=== PATIENT | male | born 1950 | race Caucasian/White ===

== ENCOUNTER 2016-09-08 21:29 | Emergency (ER) | payer BC ==
[2016-09-08] MEDS ORDERED: predniSONE 20 MG TAB PO STA (21:54)
[2016-09-08] MEDS ORDERED: IBUPROFEN 400 MG TAB PO STA (21:54)
--- NOTE | 2016-09-08 22:02 | ED ---
Lower Extremity Injury HPI - General Chief Complaint: Extremity Injury, Lower Stated Complaint: Ankle Pain Time Seen by Provider: 09/08/16 21:45 Source: patient Mode of arrival: ambulatory Limitations: no limitations - History of Present Illness Initial Comments: This patient is a 66-year-old man who presents to be evaluated for left ankle pain. Patient states that he noted this late in the afternoon when he attempted to walk that there was some soreness in his ankle. He also noticed a small amount of swelling. The pain is present around the lateral and anterior aspect of the ankle. He denies having any injury that brought it on. He had been sitting and playing video game prior to developing it. The pain is aching , mild, unless he ambulates and then it becomes moderate. He has not noticed any other worsening or relieving factors. No associated symptoms. No fever or chill, palpitations, rash. MD Complaint: ankle injury Onset/Timin -: hour(s) Injury: Ankle: Left Place: home Severity: mild Improves With: rest Worsens With: weight bearing - Related Data Home Medications Medication Instructions Recorded Confirmed Ramipril [Ramipril] 1 tab PO DAILY 09/08/16 09/08/16 Previous Rx's Medication Instructions Recorded Hydrocodone/Acetaminophen [[place] 1 each PO Q6HR PRN #20 tab 09/08/16 5-325] Ibuprofen [Motrin] 800 mg PO Q8HR PRN #20 tab 09/08/16 predniSONE 60 mg PO DAILY #30 tab 09/08/16 Allergies Allergy/AdvReac Type Severity Reaction Status Date / Time No Known Allergies Allergy Verified 09/08/16 21:31 Review of Systems ROS Statement: Those systems with pertinent positive or pertinent negative responses have been documented in the HPI. ROS Other: All systems not noted in ROS Statement are negative. Constitutional: Denies: fever, chills, weakness Respiratory: Denies: cough, dyspnea Cardiovascular: Denies: chest pain, palpitations Genitourinary: Denies: dysuria Musculoskeletal: Reports: as per HPI, joint swelling, arthralgia Skin: Denies: rash Neurological: Denies: weakness, numbness, paresthesias Past Medical History Past Medical History: Hypertension History of Any Multi-Drug Resistant Organisms: None Reported Past Surgical History: Orthopedic Surgery Past Psychological History: No Psychological Hx Reported Smoking Status: Former smoker Past Alcohol Use History: Occasional Past Drug Use History: None Reported General Exam Limitations: no limitations Cardiovascular Exam: Present: other (Normal pedal pulses and capillary refill) Extremities exam: Present: normal inspection, tenderness, normal capillary refill, joint swelling, other (There is mild swelling at the lateral aspect of the left ankle. There is moderate pain with range of motion.). Absent: pedal edema, calf tenderness Neurological exam: Absent: motor sensory deficit Skin exam: Present: warm, dry, intact, normal color. Absent: rash Course Vital Signs 09/08/16 09/08/16 21:32 23:44 Temperature 98.7 F 98.0 F Pulse Rate 65 59 L Respiratory 20 18 Rate Blood Pressure 150/83 154/93 O2 Sat by Pulse 96 98 Oximetry Medical Decision Making - Lab Data Result diagrams: 09/08/16 22:00 09/08/16 22:00 Lab Results 09/08/16 09/08/16 09/08/16 Range/Units 22:00 22:00 22:00 WBC 11.4 H (3.8-10.6) k/uL RBC 4.64 (4.30-5.90) m/uL Hgb 13.4 (13.0-17.5) gm/dL Hct 41.8 (39.0-53.0) % MCV 90.1 (80.0-100.0) fL MCH 28.8 (25.0-35.0) pg MCHC 32.0 (31.0-37.0) g/dL RDW 13.7 (11.5-15.5) % Plt Count 223 (150-450) k/uL Neutrophils % (Manual) 39.0 % Lymphocytes % (Manual) 51.0 % Monocytes % (Manual) 7.0 % Eosinophils % (Manual) 3.0 % Neutrophils # (Manual) 4.4 (1.3-7.7) k/uL Lymphocytes # (Manual) 5.8 H (1.0-4.8) k/uL Monocytes # (Manual) 0.8 (0-1.0) k/uL Eosinophils # (Manual) 0.3 (0-0.7) k/uL Nucleated RBCs 0 (0-0) /100 WBC Manual Slide Review Performed RBC Morphology Normal D-Dimer 0.55 (<0.60) mg/L FEU Sodium 143 (137-145) mmol/L Potassium 4.0 (3.5-5.1) mmol/L Chloride 109 H (98-107) mmol/L Carbon Dioxide 25 (22-30) mmol/L Anion Gap 9 mmol/L BUN 22 H (9-20) mg/dL Creatinine 1.00 (0.66-1.25) mg/dL Est GFR (MDRD) Af Amer >60 (>60 ml/min/1.73 sqM) Est GFR (MDRD) Non-Af >60 (>60 ml/min/1.73 sqM) Glucose 98 (74-99) mg/dL Calcium 9.6 (8.4-10.2) mg/dL Disposition Clinical Impression: Arthralgia Disposition: HOME SELF-CARE Condition: Good Instructions: Arthralgia (ED) Prescriptions: Hydrocodone/Acetaminophen [[place] 5-325] 1 each PO Q6HR PRN #20 tab PRN Reason: Pain Ibuprofen [Motrin] 800 mg PO Q8HR PRN #20 tab PRN Reason: Pain predniSONE 60 mg PO DAILY #30 tab Referrals: Otis Reyna MD [Primary Care Provider] - 1-2 days
[2016-09-08 22:11] LABS: CH 30.4; CHCM 33.9; HCT 41.8 % (39.0-53.0); HDW 2.44; HGB 13.4 gm/dL (13.0-17.5); MCH 28.8 pg (25.0-35.0); MCV 90.1 fL (80.0-100.0); Mean Platelet Volume 6.9; RBC 4.64 m/uL (4.30-5.90); RDW 13.7 % (11.5-15.5); WBC 11.4 k/uL (3.8-10.6); WBC (Perox) 10.96
[2016-09-08 22:16] LABS: Add Differential Manual Differential
[2016-09-08 22:22] LABS: Anion Gap 9 mmol/L; Blood Urea Nitrogen 22 mg/dL (9-20); Calcium 9.6 mg/dL (8.4-10.2); Carbon Dioxide 25 mmol/L (22-30); Chloride 109 mmol/L (98-107); Glucose 98 mg/dL (74-99); Non-African American GFR(MDRD) >60 (>60 ml/min/1.73 sqM); Nucleated Red Blood Cells 0 /100 WBC (0-0); Sodium 143 mmol/L (137-145); Total Cells Counted 100
[2016-09-08 22:23] LABS: Manual Review Performed; RBC Morphology Normal
--- NOTE | 2016-09-08 22:30 | XR ---
EXAM: XR Left Ankle Complete, 3 or More Views CLINICAL HISTORY: Reason: Pain TECHNIQUE: Frontal, lateral and oblique views of the left ankle. COMPARISON: No relevant prior studies available. FINDINGS: Bones/joints: Punctate ossific focus is seen along the inferior margin of the distal tibia, adjacent to the lateral talar dome, only on the oblique view. The osseous structures are otherwise intact. Alignment is maintained. There are mild degenerative changes. There is a well- defined plantar calcaneal spur. Minor increased opacification changes noted at the Achilles insertion site. Mild smooth nonaggressive appearing cortical thickening of the distal fibular shaft laterally, may be due to prior injury. Soft tissues: Soft tissue swelling about the ankle including laterally and anteriorly. IMPRESSION: 1. Anterolateral soft tissue swelling. 2. Tiny ossific focus adjacent to the lateral talar dome and distal tibia as only seen on one view, may be a tiny chip or avulsion type injury of indeterminate chronicity or on a degenerative basis. 3. The osseous structures are otherwise intact.
[2016-09-08] MEDS ORDERED: HYDROmorphone 1 MG/ML 1 ML SYRINGE IVP STA (22:53)
[2016-09-08] MEDS ORDERED: traMADol 50 MG STARTER PACK 3 TAB BTL PO STA (23:30)
[2016-09-08 23:46] VITALS: BP 154/93; PULSE 59; RESP 18; TEMP 98
== END 2016-09-08 23:45 | disposition home or self-care (01) ==
LOC: EC 21:29
DX: M25.572 Pain in left ankle and joints of left foot (principal); I10 Essential (primary) hypertension; Z87.891 Personal history of nicotine dependence; Z79.899 Other long term (current) drug therapy
CPT/HCPCS: 36415; 85379; 80048; 85025; 73610; 99283; 96374; J1170; J7512

== ENCOUNTER 2022-05-20 07:17 | Emergency (ER) | payer BC, MEDICARE ==
[2022-05-20 07:28] VITALS: TEMP 97.6
[2022-05-20] MEDS ORDERED: SODIUM CHLORIDE 0.9% 1,000 ML IV STA (07:40)
[2022-05-20] MEDS ORDERED: KETOROLAC 15 MG/ML 1 ML VIAL IVP STA (07:40)
[2022-05-20] MEDS ORDERED: SODIUM CHLORIDE 0.9% 500 ML 500 ML IV STA (07:40)
[2022-05-20] MEDS ORDERED: ONDANSETRON 4 MG/2 ML VIAL IVP STA (07:40)
[2022-05-20 08:08] LABS: HCT 44.4 % (39.0-53.0); HGB 14.6 gm/dL (13.0-17.5); MCH 30.1 pg (25.0-35.0); MCHC 32.9 g/dL (31.0-37.0); MCV 91.4 fL (80.0-100.0); Mean Platelet Volume 8.1; Platelet Count 185 k/uL (150-450); RBC 4.86 m/uL (4.30-5.90); RDW 13.1 % (11.5-15.5); WBC 14.3 k/uL (3.8-10.6)
[2022-05-20 08:24] LABS: Albumin 4.2 g/dL (3.5-5.0); Calcium 8.9 mg/dL (8.4-10.2); Potassium 3.9 mmol/L (3.5-5.1); Total Bilirubin 0.3 mg/dL (0.2-1.3); Total Protein 6.7 g/dL (6.3-8.2)
[2022-05-20 08:28] LABS: Appearance,Urine Clear (Clear); Bilirubin,Urine Negative (Negative); Blood,Urine Large (Negative); Color,Urine Yellow; Glucose,Urine (UA) Negative (Negative); Ketones,Urine Negative (Negative); Leukocyte Esterase,Urine Negative (Negative); Mucus,Urine Occasional /hpf; Nitrite,Urine Negative (Negative); Protein,Urine Negative (Negative); RBC,Urine 68 /hpf (0-5); Specific Gravity,Urine 1.023 (1.001-1.035); Squamous Epithelial Cell,Urine <1 /hpf (0-4); Urobilinogen,Urine <2.0 mg/dL (<2.0); WBC,Urine <1 /hpf (0-5)
--- NOTE | 2022-05-20 08:32 | CT ---
EXAMINATION TYPE: CT abdomen pelvis wo con CT DLP: 958.1 mGycm, Automated exposure control for dose reduction was used. DATE OF EXAM: 05/20/2022 8:19 AM COMPARISON: None CLINICAL INDICATION:Male, 71 years old with history of right flank pain; Right sided flank pain TECHNIQUE: Axial CT of the abdomen and pelvis. Sagittal and coronal reformats were created on a [email or web address] workstation. Contrast used: None Oral contrast used: without Oral Contrast FINDINGS: LOWER CHEST: The heart is mildly enlarged for size. Coronary artery atherosclerosis. ABDOMEN LIVER: Unremarkable GALLBLADDER AND BILE DUCTS: Unremarkable. PANCREAS: Unremarkable. SPLEEN: Unremarkable. ADRENAL GLANDS: Unremarkable. KIDNEYS AND URETERS: Mild right hydronephrosis with poor visualization of the distal ureter secondary streak artifact from hip prostheses. There is a 5 mm density felt to be present at the distal right ureterovesicular junction. PELVIS BLADDER: Unremarkable REPRODUCTIVE: Unremarkable. ABDOMEN & PELVIS STOMACH AND BOWEL: No evidence of bowel obstruction. There is a large stool burden throughout the col on. Colonic diverticulosis. Scattered small bowel feces throughout the abdomen. PERITONEUM/RETROPERITONEUM: No evidence of pneumoperitoneum or free fluid. . 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 MUSCULOSKELETAL: No acute osseous abnormalities, bilateral hip prostheses with streak artifact limiti ng evaluation of the distal ureters and pelvis.. Multilevel disc degeneration changes to the spine. L eft hamstring origin normal injury suggested with calcifications. LYMPH NODES: No gross evidence for lymphadenopathy. SOFT TISSUE/ABDOMINAL WALL: Fat-containing umbilical hernia. Fat-containing left inguinal hernia. IMPRESSION: 1. Mild right hydronephrosis from a obstructing 5 mm calculus felt to be within the distal ureter at the ureterovesicular junction. 2. 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 3. Large stool burden with evidence of fecal stasis with small bowel feces throughout the small audrey l. 4. Colonic diverticulosis.
[2022-05-20] MEDS ORDERED: ACET/COD 300 MG/30 MG STARTER PACK 6 TAB BTL PO STA (08:50)
--- NOTE | 2022-05-20 08:51 | ED ---
Abdominal Pain HPI - General Chief Complaint: Abdominal Pain Stated Complaint: R. Side Pain Time Seen by Provider: 05/20/22 07:30 Source: patient, RN notes reviewed Mode of arrival: ambulatory Limitations: no limitations - History of Present Illness Initial Comments: 71-year-old male presents emergency Department chief complaint right flank pain. Patient states started around 5 AM this morning. Patient states that makes the pain feel better or worse at this time he's trying multiple position changes, anemia press on it with no real relief. Patient does admit to nausea and he states he attempted to have bowel movement dilated symptoms states that did not help. He denies any history kidney stones and prior abdominal surgeries no fever - Related Data Home Medications Medication Instructions Recorded Confirmed Ramipril 1 tab PO DAILY 09/08/16 09/08/16 Previous Rx's Medication Instructions Recorded Hydrocodone/Acetaminophen [[place] 1 each PO Q6HR PRN #20 tab 09/08/16 5-325] Ibuprofen [Motrin] 800 mg PO Q8HR PRN #20 tab 09/08/16 predniSONE 60 mg PO DAILY #30 tab 09/08/16 Ketorolac [Toradol] 10 mg PO Q8HR #15 tab 05/20/22 Ondansetron Odt [Zofran Odt] 4 mg PO Q8HR PRN #10 tab 05/20/22 Tamsulosin [Flomax] 0.4 mg PO DAILY #7 cap 05/20/22 Allergies Allergy/AdvReac Type Severity Reaction Status Date / Time No Known Allergies Allergy Verified 05/20/22 07:24 Review of Systems ROS Statement: Those systems with pertinent positive or pertinent negative responses have been documented in the HPI. ROS Other: All systems not noted in ROS Statement are negative. Past Medical History Past Medical History: Hypertension Additional Past Medical History / Comment(s): Lukemia History of Any Multi-Drug Resistant Organisms: None Reported Past Surgical History: Orthopedic Surgery Past Psychological History: No Psychological Hx Reported Smoking Status: Never smoker Past Alcohol Use History: Occasional Past Drug Use History: None Reported General Exam Limitations: no limitations General appearance: alert, in no apparent distress Head exam: Present: atraumatic, normocephalic, normal inspection Eye exam: Present: normal appearance, PERRL, EOMI. Absent: scleral icterus, conjunctival injection, periorbital swelling ENT exam: Present: normal exam, mucous membranes moist Respiratory exam: Present: normal lung sounds bilaterally. Absent: respiratory distress, wheezes, rales, rhonchi, stridor Cardiovascular Exam: Present: regular rate, normal rhythm, normal heart sounds. Absent: systolic murmur, diastolic murmur, rubs, gallop, clicks GI/Abdominal exam: Present: soft, tenderness (Minimal right), normal bowel sounds. Absent: distended, guarding, rebound, rigid Back exam: Present: CVA tenderness (R). Absent: CVA tenderness (L) Course Vital Signs 05/20/22 07:25 Temperature 97.6 F Pulse Rate 52 L Respiratory 16 Rate Blood Pressure 194/84 O2 Sat by Pulse 97 Oximetry Medical Decision Making - Medical Decision Making Was pt. sent in by a medical professional or institution (Dr. PA, T[employer] TER[employer] GAUGER, urgent care, hospital, or retirement...) When possible be specific @ -No Did you speak to anyone other than the patient for history (EMS, parent, family, police, friend...)? What history was obtained from this source @ -No Did you review nursing and triage notes (agree or disagree)? Why? @ -I reviewed and agree with nursing and triage notes Were old charts reviewed (outside hosp., previous admission, EMS record, old EKG, old radiological studies, urgent care reports/EKG's, retirement records)? Report findings @ -No old charts were reviewed Differential Diagnosis (chest pain, altered mental status, abdominal pain women, abdominal pain men, vaginal bleeding, weakness, fever, dyspnea, syncope, headache, dizziness, GI bleed, back pain, seizure, CVA, palpatations, mental health)? @ -Kidney stone, UTI, pyelonephritis, cholecystitis, cholelithiasis, this list is not all inclusive EKG interpreted by me (3pts min.). @ -None X-rays interpreted by me (1pt min.). @ -None done CT interpreted by me (1pt min.). @ -C2 having pelvis without contrast shows distal ureter calculi on the right 5 mm, moderate stool burden, fusiform aneurysm 3.5 cm U/S interpreted by me (1pt. min.). @ -None done What testing was considered but not performed or refused? (CT, X-rays, U/S, labs)? Why? @ -None What meds were considered but not given or refused? Why? @ -None Did you discuss the management of the patient with other professionals (professionals i.e. , PA, T[employer] GAUGER, lab, RT, psych nurse, psych social worker, continuity person, teacher, hospital chief financial officer, pillowcase turner)? Give summary @ -No Was smoking cessation discussed for >3mins.? @ -No Was critical care preformed (if so, how long)? @ -No Were there social determinants of health that impacted care today? How? (Homelessness, low income, unemployed, alcoholism, drug addiction, transportation, low edu. Level, literacy, decrease access to med. care, group home, rehab)? @ -No Was there de-escalation of care discussed even if they declined (Discuss DNR or withdrawal of care, Hospice)? DNR status @ -No What co-morbidities impacted this encounter? (DM, HTN, Smoking, COPD, CAD, Cancer, CVA, ARF, Chemo, Hep., AIDS, mental health diagnosis, sleep apnea, morbid obesity)? @ -None Was patient admitted / discharged? Hospital course, mention meds given and route, prescriptions, significant lab abnormalities, going to OR and other pertinent info. @ -Discharged - 8-year-old female presented for left flank pain. Patient has 5 mm UVJ stone. Patient's pain is improved. Patient was hydrated updated on CT findings of aneurysm, stool burden patient we discharged with pain medication, Flomax. Return parameters were discussed Undiagnosed new problem with uncertain prognosis? @ -No Drug Therapy requiring intensive monitoring for toxicity (Heparin, Nitro, Insulin, Cardizem)? @ -No Were any procedures done? @ -No Diagnosis/symptom? @ -Right ureter calculi Acute, or Chronic, or Acute on Chronic? @ -acute Uncomplicated (without systemic symptoms) or Complicated (systemic symptoms)? @ -Uncomplicated Side effects of treatment? @ -No Exacerbation, Progression, or Severe Exacerbation? @ -No Poses a threat to life or bodily function? How? (Chest pain, USA, PR, pneumonia, PE, COPD, DKA, ARF, appy, cholecystitis, CVA, Diverticulitis, Homicidal, Suicidal, threat to staff... and all critical care pts) @ -No - Lab Data Result diagrams: 05/20/22 07:56 05/20/22 07:56 Lab Results 05/20/22 05/20/22 05/20/22 Range/Units 07:56 07:56 07:56 WBC 14.3 H (3.8-10.6) k/uL RBC 4.86 (4.30-5.90) m/uL Hgb 14.6 (13.0-17.5) gm/dL Hct 44.4 (39.0-53.0) % MCV 91.4 (80.0-100.0) fL MCH 30.1 (25.0-35.0) pg MCHC 32.9 (31.0-37.0) g/dL RDW 13.1 (11.5-15.5) % Plt Count 185 (150-450) k/uL MPV 8.1 Sodium 144 (137-145) mmol/L Potassium 3.9 (3.5-5.1) mmol/L Chloride 110 H (98-107) mmol/L Carbon Dioxide 28 (22-30) mmol/L Anion Gap 6 mmol/L BUN 25 H (9-20) mg/dL Creatinine 1.06 (0.66-1.25) mg/dL Est GFR (CKD-EPI)AfAm 83 (>60 ml/min/1.73 sqM) Est GFR (CKD-EPI)NonAf 72 (>60 ml/min/1.73 sqM) Glucose 125 H (74-99) mg/dL Calcium 8.9 (8.4-10.2) mg/dL Total Bilirubin 0.3 (0.2-1.3) mg/dL AST 27 (17-59) U/L ALT 20 (4-49) U/L Alkaline Phosphatase 98 (38-126) U/L Total Protein 6.7 (6.3-8.2) g/dL Albumin 4.2 (3.5-5.0) g/dL Lipase 491 H (23-300) U/L Urine Color Yellow Urine Appearance Clear (Clear) Urine pH 5.0 (5.0-8.0) Ur Specific [place] 1.023 (1.001-1.035) Urine Protein Negative (Negative) Urine Glucose (UA) Negative (Negative) Urine Ketones Negative (Negative) Urine Blood Large H (Negative) Urine Nitrite Negative (Negative) Urine Bilirubin Negative (Negative) Urine Urobilinogen <2.0 (<2.0) mg/dL Ur Leukocyte Esterase Negative (Negative) Urine RBC 68 H (0-5) /hpf Urine WBC <1 (0-5) /hpf Ur Squamous Epith Cells <1 (0-4) /hpf Urine Mucus Occasional H (None) /hpf Disposition Clinical Impression: Ureteral calculus, right, Constipation Disposition: HOME SELF-CARE Condition: Stable Instructions (If sedation given, give patient instructions): Kidney Stones (ED) Additional Instructions: Please return to the Emergency Department if symptoms worsen or any other concerns. Prescriptions: Tamsulosin [Flomax] 0.4 mg PO DAILY #7 cap Ketorolac [Toradol] 10 mg PO Q8HR #15 tab Ondansetron Odt [Zofran Odt] 4 mg PO Q8HR PRN #10 tab PRN Reason: Nausea Is patient prescribed a controlled substance at d/c from ED?: No Referrals: Otis Reyna MD [Primary Care Provider] - 1-2 days Time of Disposition: 08:50
[2022-05-20 09:36] VITALS: BP 152/76; PULSE 64; RESP 18
[2022-05-20 10:22] LABS: Monocytes # (M) 0.29 k/uL (0-1.0); Neutrophils # (M) 2.72 k/uL (1.3-7.7); Neutrophils % (M) 19 %; Nucleated Red Blood Cells 0 /100 WBC (0-0); Total Cells Counted 100
== END 2022-05-20 09:05 | disposition home or self-care (01) ==
LOC: EC 07:17
DX: N20.1 Calculus of ureter (principal); K59.00 Constipation, unspecified; K57.30 Diverticulosis of large intestine without perforation or abscess without bleeding; I10 Essential (primary) hypertension; Z79.899 Other long term (current) drug therapy
CPT/HCPCS: 36415; 80053; 83690; 85025; 81001; 74176; 99284; 96374; 96375; 96361; J2405; J1885

== ENCOUNTER → 2022-09-11 | Outpatient (CLI) | payer MEDICARE ==
--- NOTE | 2022-09-11 16:22 | P.SLEEP ---
History of Present Illness H&P Date: 09/11/22 This is a 72-year-old male patient who is being seen for sleep apnea. The patient has been diagnosed having obstructive sleep apnea back in 1996. The patient has a maintain on CPAP therapy for many years and is coming in to update his CPAP unit. Currently he has a ResMed S9 machine which is set at a pressure of 6 cm of water. The patient is also using dreamware medium size nasal mask. He is doing well on treatment. As long as on treatment, he has no snoring and he wakes up refreshed and alert during the day. His current upper score is at 6. He goes to bed at around midnight and he wakes up between 8:52 AM in the morning. His weight has dropped by around 25 pounds since last year. No naps during the day. No sleep paralysis. No hallucinations. No cataplexy. No substance abuse. No alcoholism. He is known to have hypertension. No coronary artery disease and no stroke. No congestion heart failure. No issues with insomnia or nighttime heartburn or shortness of breath or chest pain. No restlessness lower extremities. No sleepwalking or sleep talking. No dreams. No nightmares. Review of Systems Constitutional: Reports as per HPI Eyes: denies as per HPI, denies blurred vision, denies bulging eye, denies decreased vision, denies diplopia, denies discharge, denies dry eye, denies irritation, denies itching, denies pain, denies photophobia, denies loss of peripheral vision, denies loss of vision, denies tunnel vision/blind spots Ears: deny: decreased hearing, ear discharge, earache, tinnitus Ears, nose, mouth and throat: Reports as per HPI Breasts: absent: as per HPI, gynecomastia Cardiovascular: Reports as per HPI Respiratory: Reports sleep apnea Gastrointestinal: Reports as per HPI Genitourinary: Reports as per HPI Musculoskeletal: Reports as per HPI Musculoskeletal: absent: ankle pain, ankle stiffness, ankle swelling, as per HPI, elbow pain, elbow stiffness, elbow swelling, foot pain, foot stiffness, foot swelling, hand pain, hand stiffness, hand swelling, hip pain, hip stiffness, hip swelling, knee pain, knee stiffness, knee swelling, shoulder pain, shoulder stiffness, shoulder swelling, wrist pain, wrist stiffness, wrist swelling Integumentary: Reports as per HPI Neurological: Reports as per HPI Psychiatric: Reports as per HPI Endocrine: Reports as per HPI Hematologic/Lymphatic: Reports as per HPI Allergic/Immunologic: Reports as per HPI Past Medical History Past Medical History: Hypertension Additional Past Medical History / Comment(s): Hypertension, obstructive sleep apnea History of Any Multi-Drug Resistant Organisms: None Reported Past Surgical History: Orthopedic Surgery Additional Past Surgical History / Comment(s): Left total knee replacement, right partial knee replacement, bilateral hip replacement, right shoulder repair, feet surgery bilateral, carpal tunnel release bilateral. UPPP, surgery for deviated nasal septum, tonsillectomy Past Psychological History: No Psychological Hx Reported Smoking Status: Never smoker Past Alcohol Use History: Occasional Past Drug Use History: None Reported Medications and Allergies Home Medications Medication Instructions Recorded Confirmed Type Hydrocodone/Acetaminophen [[place] 1 each PO Q6HR PRN #20 tab 09/08/16 Rx 5-325] Ibuprofen [Motrin] 800 mg PO Q8HR PRN #20 tab 09/08/16 Rx Ramipril 1 tab PO DAILY 09/08/16 09/08/16 History predniSONE 60 mg PO DAILY #30 tab 09/08/16 Rx Ketorolac [Toradol] 10 mg PO Q8HR #15 tab 05/20/22 Rx Ondansetron Odt [Zofran Odt] 4 mg PO Q8HR PRN #10 tab 05/20/22 Rx Tamsulosin [Flomax] 0.4 mg PO DAILY #7 cap 05/20/22 Rx Allergies Allergy/AdvReac Type Severity Reaction Status Date / Time No Known Allergies Allergy Verified 05/20/22 07:24 Physical Exam BP is 163/93, pulse is 56, respirations 12, temperature 98.4 and a pulse ox of 96% on room air oxygen. BMI 32.9. Arden score is at 6. Weight is 236 pounds. The patient appeared well nourished and normally developed. Vital signs as documented. Head exam is unremarkable. No scleral icterus or corneal arcus noted. Neck is without jugular venous distension, thyromegaly, or carotid bruits. Carotid upstrokes are brisk bilaterally. Lungs are clear to auscultation and percussion. Cardiac exam reveals the PMI to be normally sized and situated. Rhythm is regular. First and second heart sounds normal. No murmurs, rubs or gallops. Abdominal exam reveals normal bowel sounds, no masses, no organomegaly and no aortic enlargement. Extremities are nonedematous and both femoral and pedal pulses are normal.Examination of the skin revealed no evidence of significant rashes, suspicious appearing nevi or other concerning lesions.Neurologically, the patient is awake and alert and the patient does not have any focal neurological deficit. Cranial nerves are essentially intact. Assessment and Plan Plan: Obstructive sleep apnea, currently being treated with a CPAP pressure of 6 cm of water. Patient has a [id number] machine along with a Dreamware nasal mask Hypersomnia, improved while on CPAP therapy Previous history of UPPP and tonsillectomy Degenerative arthritis with multiple orthopedic surgeries Plan Patient is interested in updating his CPAP unit We'll order a home sleep study to be established diagnosis of proceed with treatment We'll offer the patient an APAP unit pressures of 5/10 cm of water with the same mask interface Treatment has been successful over the years and the patient has been committed to long-term CPAP therapy Maintain aggressive schedule Maintain good sleep hygiene measures We'll continue to follow Sleep Note - Sleep Note Sleep Note: Temperature: Pulse Rate: Respiratory Rate: Blood Pressure: SpO2: Height: Weight: BMI: Neck Circumference:
== END ==
LOC: 3 N SLEEP 13:07
PROVIDERS: ATTEND Internal Medicine Critical Care Medicine
DX: G47.33 Obstructive sleep apnea (adult) (pediatric) (principal); I10 Essential (primary) hypertension; Z87.891 Personal history of nicotine dependence; Z98.890 Other specified postprocedural states; Z99.89 Dependence on other enabling machines and devices; M19.90 Unspecified osteoarthritis, unspecified site
CPT/HCPCS: 99212

== ENCOUNTER → 2023-03-12 | Outpatient (CLI) | payer MEDICARE ==
--- NOTE | 2023-03-12 16:44 | P.PN ---
Progress Note - Text Progress Note Date: 03/12/23 On today's evaluation of 03/12/2023, I'm seeing the patient for a follow-up regarding obstructive sleep apnea. The patient is known to have was a and the patient is currently utilizing a ResMed 10 CPAP unit. His machine was updated recently. Prior to that, he was using a ResMed S9 . He is in his machine has been updated. He is doing well for now. He is post UPPP and tonsillectomy. He has no hypersomnia or sleepiness during the day. He was given the air fit N30 i nasal pillow and he wants to proceed with a dreamware nasal pillow. This adjustment was done 4 times a day. Meanwhile, the patient's compliancy data has been checked in over the past 30 days, the patient has achieved excellent compliancy in the order of 100% and he has used the machine more than 4 hours on a percent of the time. Is averaging 8.4 hours of CPAP use per night. His leak is in order of 48 L/m. His AHI is down to 0.8. No hypersomnia or sleepiness during the day. No chest pain. No cardiac complications. No A. fib. No stroke. Is fully alert and awake during the day and his benefiting from the treatment BP is 158/81, pulse is 52, respirations 16, [place] score is at 5, pulse ox 96% and the weight is 237 The patient appeared well nourished and normally developed. Vital signs as documented. Head exam is unremarkable. No scleral icterus or corneal arcus noted. Neck is without jugular venous distension, thyromegaly, or carotid bruits. Carotid upstrokes are brisk bilaterally. Lungs are clear to auscultation and percussion. Cardiac exam reveals the PMI to be normally sized and situated. Rhythm is regular. First and second heart sounds normal. No murmurs, rubs or gal lops. Abdominal exam reveals normal bowel sounds, no masses, no organomegaly and no aortic enlargement. Extremities are nonedematous and both femoral and pedal pulses are normal.Examination of the skin revealed no evidence of significant rashes, suspicious appearing nevi or other concerning lesions.Neurologically, the patient is awake and alert and the patient does not have any focal neurological deficit. Cranial nerves are essentially intact. Assessment Obstructive sleep apnea with an AHI of 19. The patient is currently using CPAP therapy and his treatment is very effective and the patient is extremely compliant. Objective him from the treatment with improvement in his level of alertness. Previous history of UPPP and tonsillectomy Plan Continue CPAP therapy at a pressures of 5/15 cm of water. We'll switch the mask interface and utilize dreamware nasal pillows, medium size. Encourage weight loss. Maintain CPAP therapy. See back in one year's follow-up regarding his obstructive sleep apnea. Treatment is successful for now.
== END ==
LOC: 3 N SLEEP 14:30
PROVIDERS: ATTEND Internal Medicine Critical Care Medicine
DX: G47.33 Obstructive sleep apnea (adult) (pediatric) (principal); Z99.89 Dependence on other enabling machines and devices; Z98.890 Other specified postprocedural states; Z90.89 Acquired absence of other organs; Z87.891 Personal history of nicotine dependence
CPT/HCPCS: 99212